=== PATIENT | female | born 1980 | race Caucasian/White ===

== ENCOUNTER 2019-11-25 02:44 | Observation (INO) | payer BC, OTHER ==
[~2019-11-25] VITALS: Ht 177.8 cm; Wt 82.7 kg
[~2019-11-25 02:44] MED LIST: ENAL5TAB PO
--- NOTE | 2019-11-25 03:38 | NUR ---
PT STATES SHE WAS RECENTLY SEEN AT [facility]RGENT [facility]ARE FOR PAPLITATIONS. SHE WAS SENT HOME TO FOLLOW UP WITH PCP. PT STATES SHE BOUGHT A HOME ASBESTOS COVERER THAT TOLD HER SHE WAS HAVING INTERMITTANT AFIB. PT STATES THAT OCCASIONALLY IT FEELS LIKE HER HEART STOPS BEATING FOR A COUPLE SECONDS FOLLOWED BY RAPID HEART RATE THAT OCCASIONALLY CAUSES CP AND SOB. PT ATTACHED TO ALL MONITORS AND SHOWS NORMAL SINUS ON MONITOR. PIV PLACED AND LABS DRAWN BY ME.
[2019-11-25 03:45] LABS: BASOPHILS # (AUTO) 0.05 x10^3/uL (0-0.1); BASOPHILS % (AUTO) 1 % (0-1); EOSINOPHILS # (AUTO) 0.12 x10^3/uL (0-0.4); EOSINOPHILS % (AUTO) 2 % (1-7); LYMPHOCYTES # (AUTO) 2.49 x10^3/uL (1-3.4); LYMPHOCYTES % (AUTO) 43 % (22-44); MD NO; MEAN CORPUSCULAR HEMOGLOBIN 30.3 pg (27.0-34.8); MEAN CORPUSCULAR HGB CONC 33.4 g/dL (32.4-35.8); MEAN CORPUSCULAR VOLUME 90.7 fL (80-100); MEAN PLATELET VOLUME 7.5 fL (7.4-10.4); MONOCYTES # (AUTO) 0.45 x10^3/uL (0.2-0.8); MONOCYTES % (AUTO) 8 % (2-9); NEUTROPHILS # (AUTO) 2.65 x10^3/uL (1.8-6.8); NEUTROPHILS % (AUTO) 46 % (42-75); PLATELET COUNT 283 x10^3/uL (130-400); RED BLOOD COUNT 4.45 x10^6/uL (3.82-5.3); RED CELL DISTRIBUTION WIDTH 12.4 % (9.6-15.2)
[2019-11-25 03:54] LABS: ANION GAP 6 mmol/L (5-15); CHLORIDE 108 mmol/L (98-107); CREATININE 0.82 mg/dL (0.55-1.02)
[2019-11-25] MEDS ORDERED: ASPIRIN 325 MG TABLET ONE (04:09)
[2019-11-25] MEDS ORDERED: ASPIRIN 325 MG TABLET PO ONE (04:30)
[2019-11-25] MEDS ORDERED: OMNIPAQUE 350 MG/ML, 100ML BOTTLE ONE (04:49)
[2019-11-25] MEDS ORDERED: HYDROXYCHLOROQUINE PO (05:02)
[2019-11-25] MEDS ORDERED: ONDANSETRON 2MG/ML, 2ML ONE (05:16)
--- NOTE | 2019-11-25 05:27 | NUR ---
REPORT TO PÉREZ MOSLEY
[2019-11-25] MEDS ORDERED: ENOXAPARIN 80 MG/0.8 ML SQ ONE (05:30)
[2019-11-25] MEDS ORDERED: ONDANSETRON 2MG/ML, 2ML IVPush ONE (05:30)
[2019-11-25 05:56] VITALS: BP 141/91
[2019-11-25 10:33] LABS: TROPONIN I 0.118 ng/mL (0.000-0.045)
[2019-11-25 14:05] VITALS: BP 120/80
[2019-11-25 18:42] LABS: TROPONIN I 0.157 ng/mL (0.000-0.045)
[2019-11-25] MEDS: ACETAMINOPHEN 325 MG TABLET PO PRN (19:06)
[2019-11-25 20:07] VITALS: BP 126/83
[2019-11-26 00:38] VITALS: BP 106/70
[2019-11-26] MEDS: ACETAMINOPHEN 325 MG TABLET PO PRN ×2 (00:44→12:36)
[2019-11-26 04:44] LABS: BASOPHILS # (AUTO) 0.05 x10^3/uL (0-0.1); BASOPHILS % (AUTO) 1 % (0-1); EOSINOPHILS # (AUTO) 0.18 x10^3/uL (0-0.4); EOSINOPHILS % (AUTO) 3 % (1-7); LYMPHOCYTES # (AUTO) 2.11 x10^3/uL (1-3.4); LYMPHOCYTES % (AUTO) 37 % (22-44); MD NO; MEAN CORPUSCULAR HEMOGLOBIN 30.6 pg (27.0-34.8); MEAN CORPUSCULAR HGB CONC 33.4 g/dL (32.4-35.8); MEAN CORPUSCULAR VOLUME 91.5 fL (80-100); MEAN PLATELET VOLUME 7.4 fL (7.4-10.4); MONOCYTES # (AUTO) 0.47 x10^3/uL (0.2-0.8); MONOCYTES % (AUTO) 8 % (2-9); NEUTROPHILS # (AUTO) 2.85 x10^3/uL (1.8-6.8); NEUTROPHILS % (AUTO) 50 % (42-75); PLATELET COUNT 266 x10^3/uL (130-400); RED BLOOD COUNT 4.49 x10^6/uL (3.82-5.3); RED CELL DISTRIBUTION WIDTH 12.5 % (9.6-15.2)
[2019-11-26 04:47] LABS: HCT (SEDRATE) 40.9 % (34.6-47.8)
[2019-11-26 04:56] LABS: ANION GAP 6 mmol/L (5-15); CALCIUM 7.9 mg/dL (8.5-10.1); CHLORIDE 106 mmol/L (98-107)
[2019-11-26 05:02] LABS: C-REACTIVE PROTEIN, QUANT 0.08 mg/dL (0.02-0.49); CHOL/HDL RATIO 2.8; CHOLESTEROL, TOTAL 197 mg/dL (140-239); CREATININE 0.89 mg/dL (0.55-1.02); HDL CHOL % 36 % (28-40); HDL CHOLESTEROL (DIRECT) 70 mg/dL (40-60); LDL CHOLESTEROL,CALCULATED 113 mg/dL (54-169); LDL/HDL RATIO 1.6 (0.5-3.0); TRIGLYCERIDES 71 mg/dL (50-200); VLDL CHOLESTEROL 14 mg/dL (0-25)
[2019-11-26] MEDS ORDERED: ASPIRIN 81 MG TABLET EC PO SCH (06:00)
[2019-11-26 07:02] VITALS: BP 106/75
[2019-11-26 12:28] VITALS: BP 122/75
== END 2019-11-26 15:45 | disposition home or self-care (01) ==
LOC: ED 04:16 → EDIP 04:51 → 5SO 06:23
PROVIDERS: ADMIT Internal Medicine; ATTEND Internal Medicine
DX: I21.4 Non-ST elevation (NSTEMI) myocardial infarction (principal); M32.9 Systemic lupus erythematosus, unspecified; Z79.82 Long term (current) use of aspirin; Z90.710 Acquired absence of both cervix and uterus
CPT/HCPCS: 36415; 71046; 71275; 78452; 80048; 80061; 82040; 83735; 84443; 84484; 85025; 85651; 86140; 93005; 93017; 93306; 96372; 96374; 99285; A9502; C9898; G0378; J1650; J2405; Q9967

== ENCOUNTER → 2019-12-29 | Outpatient (CLI) | payer BC ==
[~2019-12-29] MED LIST changes: +HYDROXYCHLOROQUINE PO
== END | disposition home or self-care (01) ==
LOC: CFH 13:20
PROVIDERS: ATTEND Nurse Practitioner
DX: Z12.31 Encounter for screening mammogram for malignant neoplasm of breast (principal)
CPT/HCPCS: 77067

== ENCOUNTER 2020-01-27 13:37 | Outpatient (CLI) | payer BC ==
[~2020-01-27 13:37] MED LIST changes: -ENAL5TAB PO; +ENAL5TAB10 PO
== END 2020-01-27 23:59 | disposition home or self-care (01) ==
LOC: CARD 13:37
PROVIDERS: ATTEND Internal Medicine Critical Care Medicine
DX: J98.4 Other disorders of lung (principal)
CPT/HCPCS: 94060; 94726; 94729

== ENCOUNTER 2020-02-16 12:29 | Emergency (ER) | payer BC ==
[~2020-02-16] VITALS: Ht 177.8 cm; Wt 80.7 kg
[~2020-02-16 12:29] MED LIST changes: +ENAL5TAB PO; -ENAL5TAB10 PO
[2020-02-16 13:02] LABS: BASOPHILS # (AUTO) 0.03 x10^3/uL (0-0.1); BASOPHILS % (AUTO) 1 % (0-1); EOSINOPHILS # (AUTO) 0.06 x10^3/uL (0-0.4); EOSINOPHILS % (AUTO) 1 % (1-7); LYMPHOCYTES # (AUTO) 1.47 x10^3/uL (1-3.4); LYMPHOCYTES % (AUTO) 25 % (22-44); MD NO; MEAN CORPUSCULAR HEMOGLOBIN 29.8 pg (27.0-34.8); MEAN CORPUSCULAR HGB CONC 32.7 g/dL (32.4-35.8); MEAN CORPUSCULAR VOLUME 91.3 fL (80-100); MEAN PLATELET VOLUME 7.5 fL (7.4-10.4); MONOCYTES # (AUTO) 0.39 x10^3/uL (0.2-0.8); MONOCYTES % (AUTO) 7 % (2-9); NEUTROPHILS # (AUTO) 3.85 x10^3/uL (1.8-6.8); NEUTROPHILS % (AUTO) 66 % (42-75); PLATELET COUNT 319 x10^3/uL (130-400); RED BLOOD COUNT 4.73 x10^6/uL (3.82-5.3); RED CELL DISTRIBUTION WIDTH 12.7 % (9.6-15.2)
[2020-02-16 13:16] LABS: ALANINE AMINOTRANSFERASE 26 U/L (12-78); ALBUMIN 4.2 g/dL (3.4-5.0); ANION GAP 7 mmol/L (5-15); CALCIUM 8.6 mg/dL (8.5-10.1); CHLORIDE 108 mmol/L (98-107); CREATININE 0.88 mg/dL (0.55-1.02)
[2020-02-16 13:18] LABS: ALKALINE PHOSPHATASE 68 U/L (45-117); TOTAL PROTEIN 7.7 g/dL (6.4-8.2)
--- NOTE | 2020-02-16 13:51 | NUR ---
PHARMACOGNOSY TEACHER: PT WALKED BACK FROM LOBBY TO ROOM AT THIS TIME.
[2020-02-16] MEDS ORDERED: SODIUM CHLORIDE FLUSH 10ML SYR IVF ONE (14:30)
[2020-02-16 15:01] VITALS: BP 132/87
[2020-02-16] MEDS ORDERED: OMNIPAQUE 350 MG/ML, 100ML BOTTLE ONE (15:31)
--- NOTE | 2020-02-16 15:42 | NUR ---
TASK RN: TESTS RESULTED, CHART UP FOR RECHECK. PT AWARE.
--- NOTE | 2020-02-16 16:20 | NUR ---
PT UNABLE TO PROVIDE STOOL SAMPLE, OK TO PROCEED WITH DC
== END 2020-02-16 17:36 | disposition home or self-care (01) ==
LOC: ED 16:20
DX: R19.7 Diarrhea, unspecified (principal); R10.9 Unspecified abdominal pain; M32.9 Systemic lupus erythematosus, unspecified
CPT/HCPCS: 36415; 74177; 80053; 85025; 99285; Q9967

== ENCOUNTER 2020-12-01 17:20 | Emergency (ER) | payer BC, OTHER ==
[~2020-12-01] VITALS: Ht 177.8 cm; Wt 81.2 kg
[~2020-12-01 17:20] MED LIST changes: -ENAL5TAB PO; +ENAL5TAB10 PO
[2020-12-01 17:24] VITALS: BP 106/84
--- NOTE | 2020-12-01 18:38 | NUR ---
inside horticultural specialty grower: pt from lobby to room [id number]
[2020-12-01] MEDS ORDERED: ASPIRIN 81 MG TABLET CHEW PO ONE (19:30)
[2020-12-01 19:32] LABS: BASOPHILS % (AUTO) 1 % (0-1); EOSINOPHILS % (AUTO) 2 % (1-7); LYMPHOCYTES % (AUTO) 35 % (22-44); MEAN CORPUSCULAR HEMOGLOBIN 30.4 pg (27.0-34.8); MEAN CORPUSCULAR HGB CONC 33.5 g/dL (32.4-35.8); MEAN PLATELET VOLUME 7.6 fL (7.4-10.4); MONOCYTES % (AUTO) 8 % (2-9); NEUTROPHILS % (AUTO) 55 % (42-75); PLATELET COUNT 287 x10^3/uL (130-400); RED BLOOD COUNT 4.65 x10^6/uL (3.82-5.3); RED CELL DISTRIBUTION WIDTH 12.6 % (9.6-15.2)
[2020-12-01 19:37] LABS: MD NO
[2020-12-01 19:43] LABS: ALANINE AMINOTRANSFERASE 26 U/L (12-78); ALBUMIN 4.6 g/dL (3.4-5.0); ANION GAP 6 mmol/L (5-15); CALCIUM 8.8 mg/dL (8.5-10.1); CHLORIDE 108 mmol/L (98-107); CREATININE 0.91 mg/dL (0.55-1.02)
[2020-12-01 19:48] LABS: ALKALINE PHOSPHATASE 73 U/L (45-117); BILIRUBIN,TOTAL 0.9 mg/dL (0.2-1.0); TOTAL PROTEIN 7.4 g/dL (6.4-8.2); TROPONIN I < 0.015 ng/mL (0.000-0.045)
--- NOTE | 2020-12-01 22:42 | NUR ---
Patient/Caregiver given discharge instructions and they have confirmed that they understand the instructions. Patient ambulatory with steady gait. No questions at time of discharge.
== END 2020-12-01 22:48 | disposition home or self-care (01) ==
LOC: ED 18:01
DX: R07.89 Other chest pain (principal); R06.02 Shortness of breath; R00.2 Palpitations; I10 Essential (primary) hypertension
CPT/HCPCS: 36415; 71045; 80053; 84484; 84703; 85025; 93005; 99285

== ENCOUNTER 2021-01-03 14:06 | Outpatient (CLI) | payer OTHER | END 2021-01-03 23:59 | disposition home or self-care (01) | LOC: CFH 14:06 | PROVIDERS: ATTEND Nurse Practitioner | DX: Z12.31 Encounter for screening mammogram for malignant neoplasm of breast (principal) | CPT/HCPCS: 77063; 77067 ==